=== PATIENT | male | born 1950 | race Two or more races ===

== ENCOUNTER 2020-04-18 12:05 | Emergency (ER) | payer OTHER ==
[~2020-04-18] VITALS: Ht 177.8 cm; Wt 72.6 kg
[2020-04-18] MEDS ORDERED: COLCHICINE0.6 MG PO (15:47)
[2020-04-18] MEDS ORDERED: INDOMETHACIN50 MG PO (15:47)
== END 2020-04-18 16:13 ==
LOC: ER 12:05
DX: S93.491A Sprain of other ligament of right ankle, initial encounter (principal); M10.071 Idiopathic gout, right ankle and foot; X50.9XXA Other and unspecified overexertion or strenuous movements or postures, initial encounter; Y93.89 Activity, other specified; Y92.89 Other specified places as the place of occurrence of the external cause; Y99.8 Other external cause status

== ENCOUNTER 2023-08-14 07:25 | Outpatient (CLI) | payer OTHER ==
[~2023-08-14 07:25] MED LIST: COLCHICINE0.6 MG PO; INDOMETHACIN50 MG PO
[2023-08-14 08:33] LABS: URINE APPEARANCE Clear; URINE BILIRRUBIN Negative (NEGATIVE); URINE BLOOD Small; URINE COLOR Yellow; URINE GLUCOSE Negative (NEGATIVE); URINE LEUKOCYTE Negative; URINE NITRATE Negative; URINE PROTEIN Negative (NEGATIVE); URINE UROBILINOGEN 0.2 E.U./dl
[2023-08-14 08:35] LABS: URINE BACTERIA 15.1 uL (0.0-1933); URINE EPITHELIAL CELLS 2.4 uL (0.0-38.8); URINE RBC 3.4 uL (0.0-20.8); URINE WBC 4.4 uL (0.0-23.2)
[2023-08-14 09:10] LABS: ob NEGATIVE (NEGATIVE)
[2023-08-14 09:48] LABS: ALBUMIN 3.6 gm/dL (3.4-5.0); BILIRUBIN TOTAL 0.55 mg/dL (0.3-1.2); CALCIUM 9.3 mg/dL (8.5-10.1); GFR 73.66; GLOBULINA 3.5 G/DL (2.4-3.5); POTASSIUM 4.16 mEq/L (3.5-5.1); PROSTATIC SPECIFIC ANTIGEN 2.7 NG/ML (0.010-4.00); TOTAL PROTEIN 7.1 gm/dL (6.4-8.2); TSH 0.603 uIU/mL (0.358-3.74)
[2023-08-14 09:49] LABS: HEMATOCRIT 46.4 % (39.0-48.0); HEMOGLOBIN 15.3 g/dL (13-16.00); MEAN CELL VOLUME 94.3 fL (80.0-100.00); MEAN CORPUSCULAR HEMOGLOBIN 31.1 pg (27.00-32.0); PLATELET COUNT 261 K/uL (150-450); RED BLOOD COUNT 4.92 M/uL (4.00-6.00); RED CELL DISTRIBUTION WIDTH 14.2 % (11.5-14.5)
== END 2023-08-14 07:27 | disposition home or self-care (01) ==
LOC: LAB 07:25
DX: R22.9 Localized swelling, mass and lump, unspecified (principal); R10.9 Unspecified abdominal pain; Z11.3 Encounter for screening for infections with a predominantly sexual mode of transmission; Z13.1 Encounter for screening for diabetes mellitus; Z13.220 Encounter for screening for lipoid disorders; Z13.228 Encounter for screening for other metabolic disorders; Z13.89 Encounter for screening for other disorder; L60.9 Nail disorder, unspecified; Z12.5 Encounter for screening for malignant neoplasm of prostate; Z12.11 Encounter for screening for malignant neoplasm of colon

== ENCOUNTER 2023-08-20 07:29 | Outpatient (CLI) | payer OTHER | END 2023-08-20 07:37 | disposition home or self-care (01) | LOC: TOM 07:29 | PROVIDERS: ATTEND General Practice | DX: R10.9 Unspecified abdominal pain (principal); R22.9 Localized swelling, mass and lump, unspecified ==

== ENCOUNTER 2024-02-09 06:39 | Day surgery (SDC) | payer OTHER ==
[2024-02-09] MEDS ORDERED: DIPHENHYDRAMINE HCL 50 MG/ML VIAL 1ML IV ONE (11:00)
[2024-02-09] MEDS ORDERED: fentaNYL CITRATE 50 MCG/ML AMPUL IV PUSH ONE (11:00)
[2024-02-09] MEDS ORDERED: MIDAZOLAM HCL 2 MG/2 ML VIAL IV ONE (11:00)
[2024-02-09] MEDS ORDERED: ONDANSETRON HCL 2 MG/ML VIAL IV ONE (11:00)
[2024-02-09] MEDS ORDERED: ENALAPRILAT DIHYDRATE 1.25 MG/ML VIAL IV ONE ×2 (12:22→12:30)
[2024-02-14] MEDS ORDERED: NEXIUM (09:43)
== END 2024-02-09 13:25 | disposition home or self-care (01) ==
LOC: AMB-ENDOS 06:39
PROVIDERS: ATTEND Colon & Rectal Surgery
DX: D12.0 Benign neoplasm of cecum (principal); D12.3 Benign neoplasm of transverse colon; D12.5 Benign neoplasm of sigmoid colon; K63.5 Polyp of colon; K57.30 Diverticulosis of large intestine without perforation or abscess without bleeding; K64.8 Other hemorrhoids